=== PATIENT | male | born 1945 | race Caucasian/White ===

== ENCOUNTER → 2018-11-14 | Outpatient (CLI) | payer MEDICARE, BC ==
--- NOTE | 2018-11-14 14:51 | PCVCIMAG ---
APPROVED REPORT Study performed: 11/14/2018 14:00:49 EXAM: Comprehensive 2D, Doppler, and color-flow Echocardiogram Patient Location: Echo lab Status: routine BSA: 2.06 HR: 52 bpmBP: 120/80 mmHg Rhythm: NSR Other Information Study Quality: Good Indications Dizziness and Vertigo 2D Dimensions IVSd: 11.89 (7-11mm)LVOT Diam: 22.31 (18-24mm) LVDd: 48.13 mm PWd: 11.46 (7-11mm)Ascending Ao: 37.97 (22-36mm) LVDs: 29.67 (25-40mm) Left Atrium: 38.25 (27-40mm) Aortic Root: 33.30 mm LV Single Plane 4CH: 61.85 % LV Single Plane 2CH: 73.44 % Biplane EF: 68.4 % Volumes Left Atrial Volume (Systole) Single Plane 4CH: 45.38 mLSingle Plane 2CH: 51.92 mL LA ESV Index: 25.00 mL/m2 Aortic Valve AoV Peak Jayce.: 1.39 m/s AO Peak Gr.: 7.78 mmHgLVOT Max P.98 mmHg LVOT Max V: 1.12 m/s LEONID Vmax: 3.13 cm2 Mitral Valve E/A Ratio: 0.7 MV Decel. Time: 377.64 ms MV E Max Jayce.: 0.56 m/s MV A Jayce.: 0.85 m/s TDI E/Lateral E': 6.22E/Medial E': 6.22 Medial E' Jayce.: 0.09 m/s Lateral E' Jayce.: 0.09 m/s Pulmonary Valve PV Peak Jayce.: 1.05 m/sPV Peak Gr.: 4.39 mmHg Pulmonary Vein P Vein S: 0.72 m/sP Vein A: 0.52 m/s P Vein D: 0.52 m/sP Vein A Dur.: 121.1 msec P Vein S/D Ratio: 1.38 Tricuspid Valve TR Peak Jayce.: 2.50 m/s TR Peak Gr.: 25.04 mmHg Left Ventricle The left ventricle is normal size. There is normal LV segmental wall motion. There is normal left ventricular wall thickness. Left ventricular systolic function is normal. The left ventricular ejection fraction is within the normal range. LVEF is 60-65%. Grade I - abnormal relaxation pattern. Right Ventricle The right ventricle is normal size. The right ventricular systolic function is normal. Atria The left atrium size is normal. The right atrium size is normal. Aortic Valve The aortic valve is normal in structure. No aortic regurgitation is present. There is no aortic valvular stenosis. Mitral Valve The mitral valve is normal in structure. Trace to mild mitral regurgitation. No evidence of mitral valve stenosis. Tricuspid Valve The tricuspid valve is normal in structure. Trace tricuspid regurgitation. Pulmonary artery pressure is 32mmHg. Pulmonic Valve The pulmonary valve is normal in structure. There is no pulmonic valvular regurgitation. Great Vessels The aortic root is normal in size. IVC is normal in size and collapses >50% with inspiration. Pericardium There is no pericardial effusion. <Conclusion> The left ventricle is normal size. There is normal left ventricular wall thickness. Left ventricular systolic function is normal. Grade I - abnormal relaxation pattern. The right ventricle is normal size. The left atrium size is normal. The aortic valve is normal in structure. Trace to mild mitral regurgitation. Trace tricuspid regurgitation. Pulmonary artery pressure is 32mmHg.
== END | disposition home or self-care (01) ==
LOC: PCVCIMAG 13:52
PROVIDERS: ATTEND Internal Medicine Cardiovascular Disease
DX: I34.0 Nonrheumatic mitral (valve) insufficiency (principal); R42 Dizziness and giddiness; C61 Malignant neoplasm of prostate; L71.9 Rosacea, unspecified; M15.0 Primary generalized (osteo)arthritis; G47.09 Other insomnia
CPT/HCPCS: 93306